=== PATIENT | female | born 1990 | race African-American/Black ===

== ENCOUNTER → 2020-09-14 | Outpatient (CLI) | payer OTHER ==
--- NOTE | 2020-09-28 14:36 | MM ---
Reason for exam: clinical finding. History: Benign ultrasound-guided core biopsy of the left breast, January 25, 2016. Indicated problem(s): palpable abnormality in the left breast. Physical Findings: Nurse Summary: 1 x 1cm nodule in the left breast at 9 o'clock (nurse ts). MG Diagnostic Mammo w CAD LIEN Bilateral CC and MLO view(s) were taken. Prior study comparison: January 14, 2016, left breast ultrasound, performed at [facility]. The breast tissue is heterogeneously dense. This may lower the sensitivity of mammography. Previous mammotome biopsy in the left breast. Focal asymmetry right breast CC view posterior outer aspect. ASSESSMENT: Incomplete: need additional imaging evaluation, BI-RAD 0 RECOMMENDATION: Special view mammogram of the right breast.
--- NOTE | 2020-09-28 14:38 | USB ---
Reason for exam: clinical finding. History: Benign ultrasound-guided core biopsy of the left breast, January 25, 2016. US Breast LT Left complete breast ultrasound includes all four quadrants, the retroareolar region and axilla. Finding demonstrates a 0.9 x 0.6 x 0.7cm oval, hypoechoic lesion at 9 o'clock, same location as biopsied benign lesion decreased in size from 2016 ultrasound. ASSESSMENT: Probably benign, BI-RAD 3 RECOMMENDATION: Clinical management of the left breast. Manage patient on a clinical basis.
== END | disposition home or self-care (01) ==
LOC: RADMAMWWP 13:34
PROVIDERS: ATTEND Surgery
DX: R92.8 Other abnormal and inconclusive findings on diagnostic imaging of breast (principal)
CPT/HCPCS: 77066

== ENCOUNTER → 2020-09-14 | Outpatient (CLI) | payer OTHER ==
--- NOTE | 2020-09-14 10:27 | P.GSHP ---
History of Present Illness H&P Date: 09/14/20 Chief Complaint: lump left breast Katharine is a 30 year old female with a complaint of a lump in her left breast near the chest wall for 5 years. She was recommended to have it excised however in the interim she gave to a child and is now seeking consultation regarding this. It is painful, and has increased in size. She had an ultrasound and mammogram done at [facility] about 5 years ago. A biopsy was done and told it was benign but that she could have it removed. It continues to be painful and now she would like it to be removed. The pain is throbbing in the area, and has sharp pains that shoot to her nipple. It is not cyclical in nature. It is worse with pressure. nicotine: none Caffeine: coca-cola/daily multiple bottles/day Chocolate: Frequently Family history: no cancer Hormonal history: Menarche:11 , breast fed: yes, age at : 27 periods irregular BCP: none Surgical history: 2 back surgeries for scoloisis (two metal rods in her back) 2 corrective surgeries left knee Tonsillectomy Medical history: none Social History: smoke: none alcohol: none drugs: none - Constitutional Constitutional: Denies chills, Denies fever - EENT Eyes: denies blurred vision, denies pain Ears: deny: decreased hearing, tinnitus Ears, nose, mouth and throat: Denies headache, Denies sore throat - Breasts Breasts: bilateral: as per HPI - Cardiovascular Comment: 2 brothers from idiopathic hypertrophic subaortic stenosis both at the age of 22 Cardiovascular: Denies chest pain, Denies shortness of breath - Respiratory Comment: asthma - Gastrointestinal Gastrointestinal: Denies abdominal pain, Denies diarrhea, Denies nausea, Denies vomiting - Genitourinary (Female) Genitourinary: Denies dysuria, Denies hematuria - Menstruation Comment: heavy but regular every 30 days - Musculoskeletal Comment: scoliosis and knee pain - Integumentary Integumentary: Denies pruritus, Denies rash - Neurological Neurological: Denies numbness, Denies weakness - Psychiatric Psychiatric: Reports anxiety, Reports depression - Endocrine Endocrine: Denies fatigue, Denies weight change - Hematologic/Lymphatic Comment: none - Allergic/Immunologic Allergic/Immunologic: Reports as per HPI Past Medical History History of Any Multi-Drug Resistant Organisms: None Reported Smoking Status: Former smoker Medications and Allergies Home Medications Medication Instructions Recorded Confirmed Type Multivitamin [Multivitamins Adult 1 each PO DAILY 09/14/20 09/14/20 History Gummies] Allergies Allergy/AdvReac Type Severity Reaction Status Date / Time No Known Allergies Allergy Unverified 09/14/20 09:29 Surgical - Exam Vital Signs Temp Pulse Resp BP Pulse Ox 98.2 F 81 18 142/86 100 09/14/20 09:30 09/14/20 09:30 09/14/20 09:30 09/14/20 09:30 09/14/20 09:30 BMI 31 - General well developed, well nourished, no distress - Eyes normal ocular movement - ENT no hearing loss, no congestion - Neck no masses, trachea midline - Respiratory normal expansion, normal respiratory effort, clear to auscultation - Cardiovascular Rhythm: regular Heart Sounds: normal: S1, S2 - Abdomen Abdomen: soft, non tender, no guarding, no rigid, no rebound - Integumentary normal turgor - Neurologic no disoriented, no combative - Musculoskeletal normal gait, normal posture - Psychiatric oriented to time, oriented to person, oriented to place, speech is normal, memory intact Breast exam: BRA: 36DD inspection: bilateral ptosis grade 2 palpation: right breast: Multi-positional exam fibrocystic changes, no dominant masses or nodules of concern Right axilla: No adenopathy of concern Left breast: Multiple positional exam 1 x 1 cm firm area in the medial aspect at approximately 9:00, this is tender to palpation no other dominant masses or nodules of concern, fibrocystic changes Left axilla: No adenopathy of concern Results No recent mammogram or ultrasound performed Assessment and Plan Assessment: Impression: 1. Lump left breast biopsy approximately 5 years ago by history was benign 2. Mastodynia 3. Fibrocystic breast changes Plan: 1. Bilateral mammogram and ultrasound targeted at the area of concern 2. Obtain results from [facility] done on 01-25-16 pathology fibroadenoma/lactational change 3. Probable surgical resection in the operating room CC: DR. Rubio ([place]) [address] [place] [address] encounter 25 minutes, > 50% of time in planning and counselling
[2020-09-14 11:19] VITALS: BP 142/86; PULSE 81; RESP 18; TEMP 98.2
== END | disposition home or self-care (01) ==
LOC: WWCWWP 09:17
PROVIDERS: ATTEND Surgery
DX: Z53.9 Procedure and treatment not carried out, unspecified reason (principal)

== ENCOUNTER → 2020-11-15 | Outpatient (CLI) | payer OTHER ==
[2020-11-15 12:41] VITALS: BP 153/103; PULSE 69; RESP 18; TEMP 97.9
--- NOTE | 2020-11-16 09:41 | MM ---
Reason for exam: additional evaluation requested from abnormal screening. Last mammogram was performed 2 months ago. History: Benign ultrasound-guided core biopsy of the left breast, January 25, 2016. MG 3D Follow Up No Charge RT Spot compression CC, spot compression MLO, and LM view(s) were taken of the right breast. Prior study comparison: September 14, 2020, bilateral MG diagnostic mammo w CAD LIEN. The breast tissue is heterogeneously dense. This may lower the sensitivity of mammography. No distinct lesion persists on additional views. These results were verbally communicated with the patient and result sheet given to the patient on 11/15/20. ASSESSMENT: Negative, BI-RAD 1 RECOMMENDATION: Routine screening mammogram of both breasts at age 39. Manage patient on a clinical basis.
== END | disposition home or self-care (01) ==
LOC: WWCWWP 11:42
PROVIDERS: ATTEND Surgery
DX: Z53.9 Procedure and treatment not carried out, unspecified reason (principal)